=== PATIENT | female | born 1985 | race Caucasian/White ===

== ENCOUNTER 2018-06-14 05:29 | Day surgery (SDC) | payer OTHER ==
[2018-06-13 10:47] LABS: APPEARANCE,URINE CLEAR; BILIRUBIN,URINE NEGATIVE (NEGATIVE); COLOR,URINE YELLOW; GLUCOSE, URINE NEGATIVE (NEGATIVE); KETONES,URINE NEGATIVE (NEGATIVE); LEUKOCYTE ESTERASE,URINE NEGATIVE (NEGATIVE); NITRITE,URINE NEGATIVE (NEGATIVE); PROTEIN,URINE NEGATIVE (NEGATIVE); URINE SPECIFIC GRAVITY 1.021
[2018-06-13 10:50] LABS: HEMATOCRIT 37.8 % (36.0-47.0); HEMOGLOBIN 13.1 g/dL (12.0-15.5); MEAN CORPUSCULAR HEMOGLOBIN 31.5 pg (27.0-33.4); MEAN CORPUSCULAR HGB CONC 34.7 g/dL (32.0-36.0); MEAN CORPUSCULAR VOLUME 91 fl (80-97); PLATELET COUNT 180 10^3/uL (150-450); RED BLOOD COUNT 4.16 10^6/uL (3.72-5.28); RED CELL DISTRIBUTION WIDTH 12.9 % (11.5-14.0); WHITE BLOOD COUNT 3.5 10^3/uL (4.0-10.5)
[2018-06-13 11:11] LABS: ALANINE AMINOTRANSFERASE 23 U/L (9-52); ALBUMIN 4.3 g/dL (3.5-5.0); ALKALINE PHOSPHATASE 34 U/L (38-126); ANION GAP 12 (5-19); ASPARTATE AMINO TRANSFERASE 24 U/L (14-36); BILIRUBIN,DIRECT 0.2 mg/dL (0.0-0.4); BILIRUBIN,TOTAL 0.6 mg/dL (0.2-1.3); BLOOD UREA NITROGEN 11 mg/dL (7-20); CALCIUM 9.8 mg/dL (8.4-10.2); CARBON DIOXIDE 27 mmol/L (22-30); CHLORIDE 105 mmol/L (98-107); GLUCOSE 75 mg/dL (75-110); POTASSIUM 4.2 mmol/L (3.6-5.0); SODIUM 143.5 mmol/L (137-145); TOTAL PROTEIN 7.5 g/dL (6.3-8.2)
[~2018-06-14 05:29] MED LIST: CEFAZOLIN 1 GM/D5W RTU 1 GM/50 ML RTUPB IV PRN; LACTATED RINGERS 1000 ML IV PRN; LIDOCAINE 0.5% INJ-PF (5 MG/ML) 50 ML SDV SUBCUT PRN
[2018-06-14] MEDS ORDERED: DEXAMETHASONE SOD PHOSPHATE INJ 4 MG/1 ML VIAL ONE (07:04)
[2018-06-14] MEDS ORDERED: MIDAZOLAM 2 MG/2 ML INJ ONE (07:04)
[2018-06-14] MEDS ORDERED: FENTANYL CITRATE INJ/PF 100 MCG/2 ML AMPUL ONE (07:04)
[2018-06-14] MEDS ORDERED: PROPOFOL INJ 200 MG/20 ML VIAL IV ONE (07:05)
[2018-06-14] MEDS ORDERED: ONDANSETRON HCL INJ/PF 4 MG/2 ML SDV ONE ×2 (07:05→07:10)
[2018-06-14] MEDS ORDERED: FAMOTIDINE INJ/PF 20 MG/2 ML SDV IV ONE (07:10)
[2018-06-14] MEDS ORDERED: METOCLOPRAMIDE HCL INJ/PF 10 MG/2 ML SDV ONE (07:10)
[2018-06-14] MEDS ORDERED: SCOPOLAMINE HYDROBROMIDE 1.5 MG PATCH.TD72 ONE (07:10)
[2018-06-14] MEDS ORDERED: METHYLENE BLUE 50 MG/10 ML AMPULE ONE (07:22)
[2018-06-14] MEDS ORDERED: BUPIVACAINE HCL 0.5 % INJ/PF 30 ML SDV ONE (07:22)
[2018-06-14] MEDS ORDERED: GLYCOPYRROLATE 1 MG/5 ML SYRINGE ONE (07:45)
[2018-06-14] MEDS ORDERED: ROCURONIUM BROMIDE INJ 50 MG/5 ML VIAL IV ONE (07:45)
[2018-06-14] MEDS ORDERED: NEOSTIGMINE METHYLSULFATE 10 MG/10 ML VIAL ONE (07:45)
[2018-06-14] MEDS ORDERED: SUCCINYLCHOLINE CHLORIDE INJ 200 MG/10 ML VIAL ONE (07:45)
[2018-06-14] MEDS ORDERED: PROMETHAZINE HCL INJ 25 MG/1 ML VIAL IV PRN ×2 (08:17)
[2018-06-14] MEDS ORDERED: MORPHINE SULFATE 10 MG/ML INJ IV PRN (08:17)
[2018-06-14] MEDS ORDERED: FENTANYL CITRATE INJ/PF 100 MCG/2 ML AMPUL IV PRN ×3 (08:17)
[2018-06-14] MEDS ORDERED: DIPHENHYDRAMINE HCL 50 MG/ML VIAL IV PRN (08:17)
[2018-06-14] MEDS ORDERED: MEPERIDINE HCL/PF INJ 25 MG/1 ML DISP.SYRIN IV PRN (08:17)
[2018-06-14] MEDS ORDERED: OXYCODONE-ACETAMINOPHEN 5-325 MG TABLET PO PRN ×2 (08:17)
[2018-06-14] MEDS ORDERED: HYDROMORPHONE HCL INJ/PF 2 MG/ML AMPULE ONE (08:56)
[2018-06-14] MEDS ORDERED: PROMETHAZINE HCL INJ 25 MG/1 ML VIAL ONE (08:57)
[2018-06-14] MEDS: HYDROMORPHONE HCL INJ/PF 2 MG/ML AMPULE ONE ×2 (09:00→09:30)
[2018-06-14] MEDS ORDERED: KETOROLAC TROMETHAMINE INJ/PF 30 MG/1 ML SDV ONE (09:07)
[2018-06-14] MEDS ORDERED: ACETAMINOPHEN 1,000 MG/100 ML RTUPB IV ONE (09:07)
--- NOTE | 2018-06-14 09:25 | OPERATIVE REPORT E ---
Operative Report NAME: KHANH WHITMAN : 1985 AGE: 32Y DATE OF SURGERY: 06/14/2018 ROOM: PREOPERATIVE DIAGNOSIS: PELVIC PAIN, SUSPECTED ENDOMETRIOSIS. POSTOPERATIVE DIAGNOSIS: PELVIC ENDOMETRIOSIS AND PELVIC ADHESIONS. SURGEON: RIANNA MCDOWELL M.D. ANESTHESIA: General and 0.5% Marcaine. ESTIMATED BLOOD LOSS: Negligible. PERTINENT HISTORY AND OPERATIVE FINDINGS: This is a 32-year-old, 1, para 1, AB-0 female who had been having a long history of pelvic pain. She actually had laparoscopy a number of years ago and we found pelvic endometriosis. We went ahead and treated it. She had another laparoscopy up at [facility]. They said that the pelvis was clean and told her everything was okay. Over time, though, the pain has gradually reoccurred such to the point that she wanted to have it reevaluated to see if endometriosis was coming back. At the time of surgery, the vagina and cervix appeared to be normal. Urethra and bladder appeared to be normal. The uterus was retroflexed and not enlarged. No evidence of adenomyosis. The right ovary was missing. The right tube appeared to be normal. The left ovary and tube appeared to be normal. There was powder brush areas in the cul-de-sac consistent with endometriosis. There was also adhesions down in the cul-de-sac also consistent with previous endometriosis. The liver appeared to be normal. The gallbladder appeared to be slightly dilated. The stomach and the rest of the bowel appeared to be normal. I did not locate the appendix. I think it has been previously removed. PROCEDURE: The patient was brought into the operating room, placed on table in supine position, inducted under general anesthesia. Following this, she was then repositioned in a dorsal lithotomy position, prepped and draped in a sterile fashion. The bladder was drained to about 25 mL of clear-yellow urine and pelvic under anesthesia was performed with the above findings. A bivalve speculum was then inserted. The cervix was grasped on its anterior lip with a single-tooth tenaculum, sounded to 8 cm, dilated with Rema dilators, and curetted with a small sharp curette. Tenaculum probe was then inserted and the rest of the equipment was removed. Attention was then turned to the abdominal wall. A Veress needle was introduced umbilically and carried through the various layers until the abdominal cavity was entered. Upon entering the abdominal cavity the CO2 insufflation was hooked up. Opening pressures were 4 cm of water. The abdomen was filled with CO2 to a pressure of 15 cm of water which took 3.4 liters of CO2. The Veress needle was removed. A small incision was made infraumbilically. Through this incision a trocar and sleeve were inserted. The trocar was removed and through the sleeve a laparoscope was inserted. A second incision was made suprapubically. Through this incision a trocar and sleeve were inserted. The trocar was removed. Through the sleeve a probe was inserted. The contents of the pelvis and abdomen were then video recorded with the findings listed above. This terminated this part of the procedure. The lower sleeve was removed, the CO2 was allowed to escape. The upper sleeve was removed. The incisions then had 0.5% Marcaine injected 4 mL in each of the incisions; the subumbilical and the suprapubic. The fascia was closed in both of these incisions with interrupted 0-Vicryl. The skin edges in the subumbilical incision were closed with a subcuticular 4-0 Prolene. The suprapubic incision was closed with interrupted 4-0 Prolene. The bandages were applied. Attention was turned again down to the pelvis. The cystoscope was then put up on the field. The normal saline was started and gently the cystoscope was inserted through the urethra allowing the fluid to dilate the bladder. The bladder dome appeared to be normal. There was no evidence of any ecchymosis or evidence of interstitial cystitis. The trigone appeared to be normal; both urethral openings were noted with urine coming out of them. This terminated this part of the procedure. The saline was removed. There was approximately 400 mL of saline used in this procedure. The tenaculum probe had already been removed. The cervix was inspected again with the bivalve speculum. Hemostasis was adequate. This terminated the procedure. Patient was transferred to recovery room in satisfactory condition. DICTATING PHYSICIAN: RIANNA MCDOWELL M.D. [id number] PHY#: [id number] ID: [id number] JOB#: [id number] ACCT: [id number] cc:RIANNA MCDOWELL M.D. >
[2018-06-14 11:25] VITALS: BP 106/67
== END 2018-06-14 11:27 | disposition home or self-care (01) ==
LOC: OROUT 05:29
PROVIDERS: ATTEND Obstetrics & Gynecology
DX: N80.3 Endometriosis of pelvic peritoneum (principal); N73.6 Female pelvic peritoneal adhesions (postinfective); R10.2 Pelvic and perineal pain; Z79.899 Other long term (current) drug therapy; Z79.1 Long term (current) use of non-steroidal anti-inflammatories (NSAID); Z79.891 Long term (current) use of opiate analgesic
CPT/HCPCS: 86900; 86901; 36415 ×2; 86850; 85027; 81025; 80053; 81001; 88305 ×2; 49320; 52000; 58120; J2250; J3490 ×3; J0690; J1100; J3010; J1885; J2765; J1170; J2550; J0330; J2405; J2704; S0028; J0131; 790; Q9968